=== PATIENT | female | born 1985 | race Caucasian/White ===

== ENCOUNTER 2017-04-07 04:27 | Emergency (ER) | payer MEDICAID ==
[~2017-04-07] VITALS: Ht 167.6 cm; Wt 100.5 kg
[~2017-04-07 04:27] MED LIST: PREN-46 PO
[2017-04-07 05:01] VITALS: Ht 167.6 cm; Wt 100.5 kg
[2017-04-07] MEDS ORDERED: morphine 4 MG/ML VIAL IV STA ×2 (05:32→06:56)
[2017-04-07] MEDS ORDERED: SOD CHLORIDE 0.9% 1,000 ML IV STA (05:32)
[2017-04-07] MEDS ORDERED: ONDANSETRON 4 MG INJ IV STA (05:32)
[2017-04-07] MEDS ORDERED: LIDOCAINE/MYLANTA 40 ML BTL PO STA (06:10)
[2017-04-07 06:13] LABS: ADD SCAN DIFF NO
[2017-04-07 06:17] LABS: BASOPHIL # 0.1 10^3/ul (0.0-0.1); EOSINOPHILS # 0.1 10^3/ul (0.0-0.5); EOSINOPHILS % 1.1 % (0.0-7.0); HEMATOCRIT 36.5 % (37.0-47.0); HEMOGLOBIN 11.8 g/dl (12.0-16.0); LYMPHOCYTES # 2.1 10^3/ul (0.8-2.9); MEAN CORPUSCULAR HEMOGLOBIN 27.3 pg (29.0-33.0); MEAN CORPUSCULAR HGB CONC 32.3 g/dl (32.0-37.0); MEAN CORPUSCULAR VOLUME 84.5 fl (82.0-101.0); MEAN PLATELET VOLUME 11.3 fl (7.4-10.4); MONOCYTE # 0.6 10^3/ul (0.3-0.9); NEUTROPHIL # 4.4 10^3/ul (1.6-7.5); NEUTROPHILS % 60.6 % (39.0-77.0); PLATELET COUNT 301 10^3/UL (140-415); RED BLOOD COUNT 4.32 10^6/ul (4.20-5.40); RED CELL DISTRIBUTION WIDTH 13.6 % (11.5-14.5); WHITE BLOOD COUNT 7.2 10^3/ul (4.8-10.8)
[2017-04-07 06:32] LABS: ALBUMIN 4.8 g/dl (3.3-4.9); ALBUMIN/GLOBULIN RATIO 1.71; BILIRUBIN,INDIRECT 0.3 mg/dl (0-1.1); BILIRUBIN,TOTAL 0.3 mg/dl (0.2-1.3); CALCIUM 9.5 mg/dl (8.4-10.2); CREATININE 0.59 mg/dl (0.44-1.00); POTASSIUM 3.9 mmol/L (3.5-5.1); TOTAL PROTEIN 7.6 g/dl (6.1-8.1)
[2017-04-07] MEDS ORDERED: RANI150T9 PO (07:34)
--- NOTE | 2017-04-07 07:34 | ERD ---
ER Documentation Chief Complaint Date/Time DATE: 04/07/17 TIME: 07:32 Chief Complaint Pt reports upper abd pain that is worse when she lays down HPI This is a 31-year-old female who presents to the emergency room for evaluation of abdominal pain. The patient localizes the abdominal pain to the midportion of abdomen and states that she sometimes feels a burning sensation in her chest associated with this. She states is worse after meals and when she lays flat. The patient denies any radiation of the pain. She states that she has had previous abdominal pain and has had her gallbladder removed. The patient denies any vomiting or diarrhea but does state she is mildly nauseous. She is denying any relieving factors for her pain and came to the emergency room today for evaluation. ROS All systems reviewed and are negative except as per history of present illness. Medications Home Meds Reported Medications Vit #108/Iron/Fa ( ONE TABLET) 1 Each Tablet, 1 EACH PO DAILY 03/15/14 Allergies Allergies: Coded Allergies: No Known Drug Allergy (Verified Allergy, Unknown, 07/14/08) PMhx/Soc History of Surgery: Yes (choleocystectomy) Anesthesia Reaction: No Hx Neurological Disorder: No Hx Respiratory Disorders: No Hx Cardiac Disorders: No Hx Psychiatric Problems: No Hx Miscellaneous Medical Probl: No Hx Alcohol Use: No Hx Substance Use: No Hx Tobacco Use: No Smoking Status: Never smoker Physical Exam Vitals Vital Signs Date Time Temp Pulse Resp B/P Pulse Ox O2 Delivery O2 Flow Rate FiO2 04/07/17 05:01 98.1 78 16 140/77 97 Physical Exam INITIAL VITAL SIGNS: Reviewed by me GENERAL: The patient is well developed and appropriate for usual state of health in no apparent distress HEENT: Pupils equal, round, and reactive to light. EOMI. There is no scleral icterus. NECK: C-spine is soft and supple, there is no meningismus. There is no cervical lymphadenopathy. LUNGS: Clear to auscultation bilaterally. There are no rales, wheezes or rhonchi. HEART: Regular rate and rhythm, no murmurs, clicks, rubs or gallops. ABDOMEN: Epigastric tenderness to palpation, negative Marie sign, otherwise soft, non-tender, non-distended. There are bowel sounds in all four quadrants. No rebound or guarding. EXTREMITIES: There is no peripheral cyanosis or edema. No focal swelling or erythema. NEUROLOGICAL: The patient moves all four extremities with 5/5 strength. Cranial nerves II - XII are intact. Normal gait. Alert and oriented SKIN: There is no apparent rash or petechiae. HEME/LYMPHATIC: There is no evidence of excessive bruising or lymphedema. PSYCHIATRIC: The patient does not appear anxious or depressed. Result Diagram: 04/07/17 0510 04/07/17 0510 Results 24 hrs Laboratory Tests Test 04/07/17 05:10 White Blood Count 7.210^3/ul Red Blood Count 4.3210^6/ul Hemoglobin 11.8g/dl Hematocrit 36.5% Mean Corpuscular Volume 84.5fl Mean Corpuscular Hemoglobin 27.3pg Mean Corpuscular Hemoglobin Concent 32.3g/dl Red Cell Distribution Width 13.6% Platelet Count 30587^3/UL Mean Platelet Volume 11.3fl Neutrophils % 60.6% Lymphocytes % 29.0% Monocytes % 8.0% Eosinophils % 1.1% Basophils % 1.0% Nucleated Red Blood Cells % 0.0/100WBC Neutrophils # 4.410^3/ul Lymphocytes # 2.110^3/ul Monocytes # 0.610^3/ul Eosinophils # 0.110^3/ul Basophils # 0.110^3/ul Nucleated Red Blood Cells # 0.010^3/ul Sodium Level 142mmol/L Potassium Level 3.9mmol/L Chloride Level 104mmol/L Carbon Dioxide Level 24mmol/L Anion Gap 18 Blood Urea Nitrogen 10mg/dl Creatinine 0.59mg/dl Glucose Level 108mg/dl Calcium Level 9.5mg/dl Total Bilirubin 0.3mg/dl Direct Bilirubin 0.00mg/dl Indirect Bilirubin 0.3mg/dl Aspartate Amino Transf (AST/SGOT) 29IU/L Alanine Aminotransferase (ALT/SGPT) 67IU/L Alkaline Phosphatase 60IU/L Total Protein 7.6g/dl Albumin 4.8g/dl Globulin 2.80g/dl Albumin/Globulin Ratio 1.71 Lipase 69U/L Current Medications Medications (Trade) Dose Ordered Sig/Patt Route PRN Reason Start Time Stop Time Status Last Admin Dose Admin Sodium Chloride (NS) 1,000 ml @ 1,000 mls/hr Q1H STAT IV 04/07/17 05:32 04/07/17 06:31 DC 04/07/17 05:55 Morphine Sulfate (morphine) 4 mg ONCE STAT IV 04/07/17 05:32 04/07/17 05:34 DC 04/07/17 05:56 Ondansetron HCl (Zofran Inj) 4 mg ONCE STAT IV 04/07/17 05:32 04/07/17 05:34 DC 04/07/17 05:55 Miscellaneous Medication (Gi Cocktail (2)) 40 ml ONCE STAT PO 04/07/17 06:10 04/07/17 06:11 DC 04/07/17 06:16 Morphine Sulfate (morphine) 4 mg ONCE STAT IV 04/07/17 06:56 04/07/17 06:57 DC 04/07/17 07:26 Procedures/MDM EKG: Rate/Rhythm: [Normal Sinus Rhythm] QRS, ST, T-waves: [No changes consistent w/ acute ischemia] Impression: [No evidence of ischemia or arrhythmia] This 31-year-old female presents to the ER for evaluation of abdominal pain. When I evaluated her she did have epigastric tenderness to palpation. The patient had lab work drawn in her lab work is within normal limits, no signs of lipase elevation, or LFT elevation. The patient was given Pepcid, morphine, and GI cocktail with some moderate relief of her symptoms. Patient does state that she ate beans and hot sauce before this pain started. I do feel the patient is suffering from gastritis and she will be discharged home at this time with a prescription for Zantac. She was advised to return to the ER if she develops any worsening pain and she verbalized understanding. Differential diagnoses entertained was broad with potential high acuity. Patient has been evaluated for appendicitis, cholecystitis, and other high risk medical and surgical causes of abdominal pain. Ultimately the patient's evaluation is nondiagnostic. Based on the patient's lack of risk factors, as well as the patient's clinical, laboratory, and imaging data, the patient appears to be low risk for these high risk causes of abdominal pain. Departure Diagnosis: Primary Impression: Acute gastritis Additional Impression: Abdominal pain Condition: Stable RAMIROLEIDA AZEVEDOSIRI SHIN Apr 07, 2017 07:34
[2017-04-07 07:36] LABS: ADD UMIC YES; UR ASCORBIC ACID NEGATIVE (NEGATIVE); UR BILIRUBIN (Dip) NEGATIVE (NEGATIVE); UR BLOOD (Dip) NEGATIVE (NEGATIVE); UR CLARITY CLEAR (CLEAR); UR COLOR STRAW (YELLOW); UR GLUCOSE (Dip) NEGATIVE (NEGATIVE); UR KETONES (Dip) NEGATIVE (NEGATIVE); UR LEUKOCYTE ESTERASE (Dip) TRACE Leu/ul (NEGATIVE); UR NITRITE (Dip) NEGATIVE (NEGATIVE); UR RBC 2 /HPF (0-5); UR SPECIFIC GRAVITY (Dip) 1.006 (1.003-1.030); UR TOTAL PROTEIN (Dip) NEGATIVE (NEGATIVE); UR UROBILINOGEN (Dip) NEGATIVE (NEGATIVE)
[2017-04-07 07:40] VITALS: BP 111/62; PULSE 65; RESP 16; TEMP 98
== END 2017-04-07 07:41 | disposition home or self-care (01) ==
LOC: E/R 04:27
DX: K29.00 Acute gastritis without bleeding (principal); R10.13 Epigastric pain
CPT/HCPCS: 36415; 80053; 81001; 83690; 85025; 93005; 96374; 96375; 96376; J2270; J2405; J7030; Z7502; Z7610